=== PATIENT | female | born 1985 | race Hispanic/Latino ===

== ENCOUNTER 2019-09-07 09:08 | Outpatient (CLI) | payer MEDICAID, OTHER ==
[2019-09-07 09:30] VITALS: BP 113/67
== END 2019-09-07 10:13 | disposition home or self-care (01) ==
LOC: TRG 09:08
PROVIDERS: ATTEND Obstetrics & Gynecology
DX: O42.912 Preterm premature rupture of membranes, unspecified as to length of time between rupture and onset of labor, second trimester (principal); Z3A.25 25 weeks gestation of pregnancy